=== PATIENT | male | born 1975 | race Caucasian/White ===

== ENCOUNTER 2021-05-25 14:51 | Inpatient (IN) | payer BC ==
[2021-05-25] MEDS ORDERED: MORPHINE SULFATE 4 MG/ML SYRINGE IVP STA ×2 (15:23→19:01)
[2021-05-25 15:37] LABS: Basophils # (A) 0.1 k/uL (0-0.2); Basophils % (A) 1 %; Eosinophils # (A) 0.2 k/uL (0-0.7); Eosinophils % (A) 3 %; HCT 45.6 % (39.0-53.0); HGB 15.7 gm/dL (13.0-17.5); Lymphocytes # (A) 2.1 k/uL (1.0-4.8); Lymphocytes % (A) 25 %; MCH 30.6 pg (25.0-35.0); MCHC 34.5 g/dL (31.0-37.0); MCV 88.6 fL (80.0-100.0); Monocytes # (A) 0.5 k/uL (0-1.0); Monocytes % (A) 6 %; Neutrophils # (A) 5.3 k/uL (1.3-7.7); Neutrophils % (A) 64 %; Platelet Count 195 k/uL (150-450); RBC 5.15 m/uL (4.30-5.90); RDW 12.3 % (11.5-15.5); WBC 8.3 k/uL (3.8-10.6)
[2021-05-25] MEDS ORDERED: KETOROLAC 30 MG/ML 1 ML VIAL IVP STA (15:41)
[2021-05-25 15:49] LABS: ALT 14 U/L (4-49); AST 33 U/L (17-59); African American GFR (CKD) >90 (>60 ml/min/1.73 sqM); Albumin 4.1 g/dL (3.5-5.0); Alkaline Phosphatase 90 U/L (38-126); Anion Gap 8 mmol/L; Blood Urea Nitrogen 8 mg/dL (9-20); Carbon Dioxide 24 mmol/L (22-30); Chloride 101 mmol/L (98-107); Glucose 106 mg/dL (74-99); Lipase 71 U/L (23-300); Magnesium 2.1 mg/dL (1.6-2.3); Non-African American GFR(CKD) >90 (>60 ml/min/1.73 sqM); Sodium 133 mmol/L (137-145); Total Bilirubin 0.9 mg/dL (0.2-1.3)
[2021-05-25 15:55] LABS: Potassium 5.1 mmol/L (3.5-5.1)
--- NOTE | 2021-05-25 15:57 | ED ---
General Adult HPI - General Chief complaint: Chest Pain Stated complaint: chest pain Time Seen by Provider: 05/25/21 15:17 Source: patient, EMS, RN notes reviewed, old records reviewed Mode of arrival: EMS Limitations: no limitations - History of Present Illness Initial comments: 45-year-old male presenting with left-sided chest pain. Patient's pain began shortly prior to arrival. He was in his vehicle smoking a cigarette. He does have history of tobacco use. He developed pain that was in his left chest. No extremity pain. No vomiting. No diaphoresis. No previous history of CAD. No history of DVT or PE. No significant cough or fever. - Related Data Home Medications Medication Instructions Recorded Confirmed No Known Home Medications 05/25/21 05/25/21 Allergies Allergy/AdvReac Type Severity Reaction Status Date / Time No Known Allergies Allergy Verified 05/25/21 17:26 Review of Systems ROS Statement: Those systems with pertinent positive or pertinent negative responses have been documented in the HPI. ROS Other: All systems not noted in ROS Statement are negative. Past Medical History Past Medical History: No Reported History History of Any Multi-Drug Resistant Organisms: None Reported Past Surgical History: Back Surgery Past Psychological History: No Psychological Hx Reported Smoking Status: Current every day smoker Past Alcohol Use History: None Reported Past Drug Use History: None Reported General Exam Limitations: no limitations General appearance: alert, in no apparent distress Head exam: Present: atraumatic, normocephalic Eye exam: Present: normal appearance, PERRL ENT exam: Present: normal exam Neck exam: Present: normal inspection. Absent: tenderness, meningismus Respiratory exam: Present: normal lung sounds bilaterally. Absent: respiratory distress, wheezes, rales, rhonchi Cardiovascular Exam: Present: regular rate, normal rhythm GI/Abdominal exam: Present: soft. Absent: distended, tenderness, guarding, rebound Extremities exam: Present: normal inspection, normal capillary refill Back exam: Present: normal inspection, full ROM Neurological exam: Present: alert Psychiatric exam: Present: normal affect, normal mood Skin exam: Present: warm, dry, intact. Absent: cyanosis, diaphoretic Course Vital Signs 05/25/21 05/25/21 05/25/21 14:57 17:27 18:07 Temperature 98.8 F Pulse Rate 78 64 67 Respiratory 16 18 20 Rate Blood Pressure 143/92 133/95 120/79 O2 Sat by Pulse 98 100 99 Oximetry 05/25/21 19:17 Temperature Pulse Rate 95 Respiratory 20 Rate Blood Pressure 158/108 O2 Sat by Pulse 100 Oximetry - Reevaluation(s) Reevaluation #1: 05/25/211914 Recent symptoms did improve all emergency department. My plan was initially to admit however the patient preferred discharge. He agreed to a second troponin. The second troponin was significantly elevated in the patient agreed to admission at this time. EKG Findings - EKG Comments: EKG Findings:: EKG: Normal sinus rhythm, rate of 87, MN interval 154, QRS duration 96, QTC 442, no ST segment elevation. EKG repeated at 1625, normal sinus, no ST segment elevation, rate is 74, MN interval 176, QRS duration 94, QTC 439 Medical Decision Making - Medical Decision Making 45 yo male with left-sided chest pain. Pain began abruptly. Patient did have his booster shot for coronavirus 3 days ago. His pain is left-sided nonradiating. No associated diaphoresis. His EKG twice in the emergency d epartment while he was having active pain was normal sinus rhythm without ST segment elevation. Chest x-ray is clear. He has a normal CBC, normal CMP, negative d-dimer, negative initial troponin. He did agree to second troponin while in the emergency department which was positive at 0.6. At this time the the case was discussed with cardiology, Dr. Maddox as well as the admitting team, Neelam kay for [facility] Patient was given aspirin, nitroglycerin, heparin infusion in the emergency department. He was started on a beta maegan. Echo was ordered. Serial cardiac enzymes are ordered. - Lab Data Result diagrams: 05/25/21 15:20 05/25/21 15:20 Lab Results 05/25/21 05/25/21 05/25/21 Range/Units 15:20 15:20 15:20 WBC 8.3 (3.8-10.6) k/uL RBC 5.15 (4.30-5.90) m/uL Hgb 15.7 (13.0-17.5) gm/dL Hct 45.6 (39.0-53.0) % MCV 88.6 (80.0-100.0) fL MCH 30.6 (25.0-35.0) pg MCHC 34.5 (31.0-37.0) g/dL RDW 12.3 (11.5-15.5) % Plt Count 195 (150-450) k/uL MPV 8.0 Neutrophils % 64 % Lymphocytes % 25 % Monocytes % 6 % Eosinophils % 3 % Basophils % 1 % Neutrophils # 5.3 (1.3-7.7) k/uL Lymphocytes # 2.1 (1.0-4.8) k/uL Monocytes # 0.5 (0-1.0) k/uL Eosinophils # 0.2 (0-0.7) k/uL Basophils # 0.1 (0-0.2) k/uL PT 9.8 (9.0-12.0) sec INR 0.9 (<1.2) APTT 24.4 (22.0-30.0) sec D-Dimer 0.52 (<0.60) mg/L FEU Sodium 133 L (137-145) mmol/L Potassium 5.1 (3.5-5.1) mmol/L Chloride 101 (98-107) mmol/L Carbon Dioxide 24 (22-30) mmol/L Anion Gap 8 mmol/L BUN 8 L (9-20) mg/dL Creatinine 0.80 (0.66-1.25) mg/dL Est GFR (CKD-EPI)AfAm >90 (>60 ml/min/1.73 sqM) Est GFR (CKD-EPI)NonAf >90 (>60 ml/min/1.73 sqM) Glucose 106 H (74-99) mg/dL Calcium 9.0 (8.4-10.2) mg/dL Magnesium 2.1 (1.6-2.3) mg/dL Total Bilirubin 0.9 (0.2-1.3) mg/dL AST 33 (17-59) U/L ALT 14 (4-49) U/L Alkaline Phosphatase 90 (38-126) U/L Troponin I (0.000-0.034) ng/mL Total Protein 7.0 (6.3-8.2) g/dL Albumin 4.1 (3.5-5.0) g/dL Lipase 71 (23-300) U/L 05/25/21 05/25/21 Range/Units 15:20 18:08 WBC (3.8-10.6) k/uL RBC (4.30-5.90) m/uL Hgb (13.0-17.5) gm/dL Hct (39.0-53.0) % MCV (80.0-100.0) fL MCH (25.0-35.0) pg MCHC (31.0-37.0) g/dL RDW (11.5-15.5) % Plt Count (150-450) k/uL MPV Neutrophils % % Lymphocytes % % Monocytes % % Eosinophils % % Basophils % % Neutrophils # (1.3-7.7) k/uL Lymphocytes # (1.0-4.8) k/uL Monocytes # (0-1.0) k/uL Eosinophils # (0-0.7) k/uL Basophils # (0-0.2) k/uL PT (9.0-12.0) sec INR (<1.2) APTT (22.0-30.0) sec D-Dimer (<0.60) mg/L FEU Sodium (137-145) mmol/L Potassium (3.5-5.1) mmol/L Chloride (98-107) mmol/L Carbon Dioxide (22-30) mmol/L Anion Gap mmol/L BUN (9-20) mg/dL Creatinine (0.66-1.25) mg/dL Est GFR (CKD-EPI)AfAm (>60 ml/min/1.73 sqM) Est GFR (CKD-EPI)NonAf (>60 ml/min/1.73 sqM) Glucose (74-99) mg/dL Calcium (8.4-10.2) mg/dL Magnesium (1.6-2.3) mg/dL Total Bilirubin (0.2-1.3) mg/dL AST (17-59) U/L ALT (4-49) U/L Alkaline Phosphatase (38-126) U/L Troponin I 0.016 0.671 H* (0.000-0.034) ng/mL Total Protein (6.3-8.2) g/dL Albumin (3.5-5.0) g/dL Lipase (23-300) U/L Critical Care Time Critical Care Time: Yes Total Critical Care Time: 35 Disposition Clinical Impression: Acute non-ST elevation myocardial infarction (NSTEMI) Disposition: ADMITTED IP TO THIS HOSP Condition: Stable Is patient prescribed a controlled substance at d/c from ED?: No Referrals: Christian Vidales MD [Primary Care Provider] - 1-2 days Decision to Admit Reason: Admit from EC Decision Date: 05/25/21 Decision Time: 19:30
[2021-05-25 16:11] LABS: INR 0.9 (<1.2); Partial Thromboplastin Time 24.4 sec (22.0-30.0); Prothrombin Time 9.8 sec (9.0-12.0)
[2021-05-25] MEDS ORDERED: ASPIRIN 325 MG TAB PO STA (16:15)
--- NOTE | 2021-05-25 16:29 | XR ---
INDICATION: Patient age:Male; 45 years old; Reason for study: Chest Pain; PHH. COMPARISON: None. TECHNIQUE: Frontal and lateral views of the chest. FINDINGS: Lungs/Pleura: There is no evidence of pleural effusion, focal consolidation, or pneumothorax. Pulmonary vascularity: Unremarkable. Heart/mediastinum: Cardiomediastinal silhouette is unremarkable. Musculoskeletal: No acute osseous pathology. IMPRESSION: No acute cardiopulmonary disease/process.
[2021-05-25] MEDS ORDERED: HEPARIN SODIUM 1,000 UN/ML (10ML VL) IV ONE (19:12)
[2021-05-25] MEDS ORDERED: HEPARIN SODIUM 1,000 UN/ML (10ML VL) IV PRN (19:12)
[2021-05-25] MEDS ORDERED: HEPARIN SOD,PORK IN 0.45% NACL 25,000 UNIT in 0.45% NACL 1 250ML.BAG IV SCH (19:15)
[2021-05-25] MEDS: METOPROLOL TARTRATE 25 MG TAB PO SCH (19:53)
[2021-05-25] MEDS: NITROGLYCERIN OINT 1 INCH/GM PACKET TOPICAL SCH (19:54)
[2021-05-25 20:16] LABS: Appearance,Urine Clear (Clear); Bilirubin,Urine Negative (Negative); Blood,Urine Negative (Negative); Color,Urine Yellow; Glucose,Urine (UA) Negative (Negative); Ketones,Urine Negative (Negative); Leukocyte Esterase,Urine Negative (Negative); Nitrite,Urine Negative (Negative); Protein,Urine Negative (Negative); Specific Gravity,Urine 1.007 (1.001-1.035); Urobilinogen,Urine <2.0 mg/dL (<2.0)
[2021-05-25 20:39] LABS: Amphetamine Screen,Urine Not Detected (NotDetected); Barbiturate Screen,Urine Not Detected (NotDetected); Benzodiazepines Screen,Urine Not Detected (NotDetected); Cocaine Screen,Urine Not Detected (NotDetected); Methadone Screen, Urine Not Detected (NotDetected); Opiate Screen,Urine Detected (NotDetected); Oxycodone Screen, Urine Not Detected (NotDetected); Phencyclidine Screen,Urine Not Detected (NotDetected); Tricyclic Antidepressant,Urine Not Detected (NotDetected); Urn Cannabinoid Scrn Not Detected (NotDetected)
[2021-05-25] MEDS ORDERED: ATORVASTATIN 80 MG TAB PO SCH (21:00)
[2021-05-25] MEDS ORDERED: LORazepam 2 MG/ML INJ IV STA (22:35)
[2021-05-25] MEDS ORDERED: HYDROmorphone 1 MG/ML 1 ML SYRINGE IVP STA (22:35)
[2021-05-25] MEDS: MORPHINE SULFATE 4 MG/ML SYRINGE IV PRN (23:16)
[2021-05-26 02:35] LABS: Basophils # (A) 0.1 k/uL (0-0.2); Basophils % (A) 1 %; Eosinophils # (A) 0.3 k/uL (0-0.7); Eosinophils % (A) 4 %; HCT 39.1 % (39.0-53.0); HGB 13.4 gm/dL (13.0-17.5); Lymphocytes # (A) 3.5 k/uL (1.0-4.8); Lymphocytes % (A) 45 %; MCH 30.5 pg (25.0-35.0); MCHC 34.4 g/dL (31.0-37.0); MCV 88.6 fL (80.0-100.0); Mean Platelet Volume 8.3; Monocytes # (A) 0.5 k/uL (0-1.0); Monocytes % (A) 6 %; Neutrophils # (A) 3.4 k/uL (1.3-7.7); Neutrophils % (A) 43 %; Platelet Count 179 k/uL (150-450); RBC 4.41 m/uL (4.30-5.90); RDW 12.1 % (11.5-15.5); WBC 7.9 k/uL (3.8-10.6)
[2021-05-26 02:56] LABS: INR 0.9 (<1.2); Prothrombin Time 10.1 sec (9.0-12.0)
[2021-05-26] MEDS: MORPHINE SULFATE 4 MG/ML SYRINGE IV PRN ×3 (05:01→10:09)
[2021-05-26] MEDS: NITROGLYCERIN OINT 1 INCH/GM PACKET TOPICAL SCH ×2 (05:59→17:24)
[2021-05-26] MEDS: METOPROLOL TARTRATE 25 MG TAB PO SCH (08:31)
[2021-05-26] MEDS ORDERED: ASPIRIN 325 MG TAB PO SCH (09:00)
[2021-05-26] MEDS ORDERED: ALPRAZolam 0.25 MG TAB PO PRN (09:43)
[2021-05-26] MEDS ORDERED: ATORVASTATIN 80 MG TAB PO STA (09:43)
[2021-05-26] MEDS ORDERED: ALPRAZolam 0.5 MG TAB PO PRN (09:43)
[2021-05-26] MEDS ORDERED: NITROGLYCERIN SL TABS 0.4 MG TAB SUBLINGUAL PRN (09:43)
[2021-05-26] MEDS ORDERED: ASPIRIN 325 MG TAB PO STA (09:43)
[2021-05-26] MEDS ORDERED: SODIUM CHLORIDE 0.9% 1,000 ML in EMPTY BAG 1 BAG IV SCH (09:45)
[2021-05-26] MEDS ORDERED: LIDOCAINE 1% INJ 10MG/ML (20 ML MDV) SQ ONE ×2 (11:08→12:08)
[2021-05-26] MEDS ORDERED: LIDOCAINE 1% INJ 10MG/ML (20 ML MDV) ONE (12:00)
[2021-05-26] MEDS ORDERED: VERAPAMIL 2.5 MG/ML 2 ML AMP ONE (12:01)
[2021-05-26] MEDS ORDERED: .fentaNYL (PF) 50 MCG/ML 2 ML AMP IV ONE (12:08)
[2021-05-26] MEDS ORDERED: VERAPAMIL SYRINGE (5 MG/10 ML) INTRAARTER ONE (12:11)
[2021-05-26] MEDS ORDERED: MIDAZOLAM 2 MG/2 ML VIAL IV ONE (12:11)
[2021-05-26] MEDS ORDERED: HEPARIN SODIUM 1,000 UN/ML (10ML VL) ONE (12:12)
[2021-05-26] MEDS ORDERED: HEPARIN SODIUM 1,000 UN/ML (10ML VL) IV ONE (12:13)
[2021-05-26] MEDS ORDERED: IV FLUID CONTINUATION 1,000 ML IV ONE (12:13)
[2021-05-26 13:13] LABS: Chol/HDL Ratio 5.74 Ratio; LDL Cholesterol,Calculated 92.8 mg/dL (0.0-131.0)
[2021-05-26] MEDS ORDERED: HYDROcodone/APAP 7.5-325MG 1 EACH TAB PO PRN (13:23)
--- NOTE | 2021-05-26 13:23 | CONS ---
CONSULTATION HISTORY OF PRESENT ILLNESS: Ike is a 45-year-old gentleman with no significant past medical history who presented to [facility] having had an episode of chest pain. It was sudden onset precordial chest pressure, mild to moderate intensity 5 to 8/10 in intensity that radiated to his back. The patient had a recent Covid booster and developed lymphadenopathy in the right axilla. His EKG on his initial presentation to the emergency room showed normal sinus rhythm and was within normal limits. He has had troponins and the first troponin was normal at 0.016 but subsequent who came back elevated at 0.6 and 1.1 necessitating his admission to hospital. His urine drug screen was positive for opiates. Coronavirus test was negative. At the time of my evaluation this morning, he still complains of chest pressure. Given his chest pain and the non ST-segment elevation [place], I advised him to undergo cardiac catheterization. He understands risks, benefits and alternatives. PAST MEDICAL HISTORY: Negative for hypertension, diabetes or dyslipidemia. MEDICATIONS: None. ALLERGIES: None. FAMILY HISTORY: Significant for coronary artery disease in his father and also recurrent strokes. SOCIAL HISTORY: Negative for smoking. There is no history of EtOH abuse or drug abuse. REVIEW OF SYSTEMS: HEENT is unremarkable. CARDIAC as described above. RESPIRATORY as described above. GI negative. GENITOURINARY: Negative. ALLERGY none. SKIN negative. MUSCULOSKELETAL negative. DERM: Negative. CONSTITUTIONAL negative. ONCOLOGICAL negative. EGG TRAYER negative. Rest of the system review is not relevant, PHYSICAL EXAMINATION: O2 saturation is 98% on room air. VITAL SIGNS: Stable. NECK: There is no jugular venous distention. Carotid upstroke is normal. There is no bruit. CHEST exam reveals good air entry bilaterally. HEART exam reveals first and second heart sounds. No gallop. No murmur. No rub. ABDOMEN is soft, nontender. Examination of EXTREMITIES did not reveal any edema. Peripheral pulses are felt. LABS: Labs show that the hemoglobin is 13.4, platelet count is 179, potassium is 5.1, creatinine 0.8. Troponins are elevated. ASSESSMENT: Acute fcu-PS-ebnlmzj-elevation myocardial infarction. PLAN: Patient will undergo cardiac catheterization today. He is currently on aspirin, Lipitor, and Lopressor along with nitro paste. MMODL / IJN: [id number] /
--- NOTE | 2021-05-26 13:32 | CC ---
CARDIAC CATHETERIZATION REPORT INDICATION: Non ST-segment elevation [place]. PROCEDURE NOTE: After obtaining informed consent, left heart catheterization and coronary angiogram were performed via the right radial artery using standard Matilda catheters. Patient tolerated the procedure well without any obvious immediate complications. A size 4 Matilda catheters were used to engage the right and the left coronary artery. The patient received moderate conscious sedation. Total sedation time was 15 minutes. Right radial artery access was obtained using modified Seldinger technique and under fluoroscopic guidance, wires and catheters were floated into the ascending aorta and the cardiac catheterization was completed uneventfully. 5 mg of verapamil was used to prevent vasospasm and patient also received intravenous heparin. A TR band was placed for hemostasis and pulse ox of 99 percent was obtained. FINDINGS: HEMODYNAMICS: Left ventricular end-diastolic pressure 10-14 mm. There is no significant gradient across the aortic valve. LEFT VENTRICULOGRAM: Not performed. ANGIOGRAPHIC DATA: LEFT MAIN CORONARY ARTERY: Left main coronary artery is a normal-sized vessel and is free of stenosis. Divides into left anterior descending coronary artery and circumflex coronary artery. LEFT ANTERIOR DESCENDING CORONARY ARTERY: LAD and its branches, circumflex coronary artery and its branches are free of significant stenosis RIGHT CORONARY ARTERY: Right coronary artery is a large dominant vessel and is free of significant disease. CONCLUSION: 1. Normal coronary arteries. 2. Normal left ventricular end-diastolic pressure. PLAN: Patient's elevated troponin may be related to myocarditis from the recent Covid booster shot. I will obtain a 2D echo to document the LV function hopefully home in the morning. MMBILL / PATTIN: [id number] /
[2021-05-26 13:43] VITALS: RESP 16
--- NOTE | 2021-05-26 13:46 | P.DS ---
Providers Date of admission: 05/25/21 19:12 Attending physician: Eran Chou Consults: 05/25/21 19:12 Consult Physician Urgent Consulting Provider: Eladio Maddox Consult Reason/Comments: NSTEMI Do you want consulting provider notified?: Already Contacted Primary care physician: Christian Vidales [facility] Course: Please refer to my history of present illness for further details Patient Condition at Discharge: Stable Plan - Discharge Summary Discharge Rx Participant: Yes New Discharge Prescriptions: No Action No Known Home Medications Discharge Medication List No Known Home Medications 05/25/21 [History] Follow up Appointment(s)/Referral(s): Christian Vidales MD [Primary Care Provider] - 3 Days Discharge Disposition: HOME SELF-CARE
--- NOTE | 2021-05-26 13:46 | ECHOF ---
Referral Reason:NSTEMI MEASUREMENTS -------- HEIGHT: 177.8 cm WEIGHT: 80.7 kg BP: RVIDd: 2.4 cm (< 3.3) IVSd: 1.1 cm (0.6 - 1.1) LVIDd: 4.6 cm (3.9 - 5.3) LVPWd: 1.1 cm (0.6 - 1.1) IVSs: 1.3 cm LVIDs: 3.3 cm LVPWs: 1.5 cm LAESV Index (A-L): 26.60 ml/m Ao Diam: 3.2 cm (2.0 - 3.7) AV Cusp: 2.3 cm (1.5 - 2.6) LA Diam: 3.5 cm (2.7 - 3.8) MV EXCURSION: 22.721 mm (> 18.000) MV EF SLOPE: 90 mm/s (70 - 150) EPSS: 0.8 cm MV E Garret: 0.82 m/s MV DecT: 236 ms MV A Garret: 0.69 m/s MV E/A Ratio: 1.20 RAP: 5.00 mmHg RVSP: 13.74 mmHg FINDINGS -------- Sinus rhythm. This was a technically adequate study. The left ventricular size is normal. Left ventricular wall thickness is normal. Overall left vent ricular systolic function is normal with, an EF between 55 - 60 %. The right ventricle is normal in size. Normal LA size by volume 22+/-6 ml/m2. The right atrial size is normal. Interatrial and interventricular septum intact. The aortic valve is trileaflet and appears structurally normal. There is no evidence of aortic regu rgitation. There is no evidence of aortic stenosis. No mitral regurgitation. Mild tricuspid regurgitation present. There is no evidence of pulmonary hypertension. The right v entricular systolic pressure, as measured by Doppler, is 13.74mmHg. There is no pulmonic regurgitation present. The aortic root size is normal. Normal inferior vena cava with normal inspiratory collapse consistent with estimated right atrial pre ssure of 5 mmHg. There is no pericardial effusion. CONCLUSIONS -------- 1. The left ventricular size is normal. 2. Left ventricular wall thickness is normal. 3. Overall left ventricular systolic function is normal with, an EF between 55 - 60 %. 4. Mild tricuspid regurgitation present. CLINICAL LABORATORY MANAGER: Cammy Mcqueen RDCS
--- NOTE | 2021-05-26 13:46 | P.HPIM ---
History of Present Illness Patient is a 45-year-old the male came in with the complaints of chest pain which started yesterday 01/29 in severity sharp in nature radiating to the back. Patient had a recent Covid 19 posterior EKG showed normal sinus rhythm without any acute abnormality although troponin progressively went up from 0.016-1.1 because of which patient was advised to undergo cardiac catheterization patient underwent cardiac catheterization although I do not have any official report it appears patient had normal coronaries. REVIEW OF SYSTEMS: CONSTITUTIONAL: No fever, no malaise, no fatigue. HEENT: No recent visual problems or hearing problems. Denied any sore throat. CARDIOVASCULAR: No orthopnea, PND, no palpitations, no syncope. PULMONARY: No shortness of breath, no cough, no hemoptysis. GASTROINTESTINAL: No diarrhea, no nausea, no vomiting, no abdominal pain. NEUROLOGICAL: No headaches, no weakness, no numbness. HEMATOLOGICAL: Denies any bleeding or petechiae. GENITOURINARY: Denies any burning micturition, frequency, or urgency. MUSCULOSKELETAL/RHEUMATOLOGICAL: Denies any joint pain, swelling, or any muscle pain. ENDOCRINE: Denies any polyuria or polydipsia. The rest of the 14-point review of systems is negative. PHYSICAL EXAMINATION: GENERAL: The patient is alert and oriented x3, not in any acute distress. Well developed, well nourished. HEENT: Pupils are round and equally reacting to light. EOMI. No scleral icterus. No conjunctival pallor. Normocephalic, atraumatic. No pharyngeal erythema. No thyromegaly. CARDIOVASCULAR: S1 and S2 present. No murmurs, rubs, or gallops. PULMONARY: Chest is clear to auscultation, no wheezing or crackles. ABDOMEN: Soft, nontender, nondistended, normoactive bowel sounds. No palpable organomegaly. MUSCULOSKELETAL: No joint swelling or deformity. EXTREMITIES: No cyanosis, clubbing, or pedal edema. NEUROLOGICAL: Gross neurological examination did not reveal any focal deficits. SKIN: No rashes. Assessment and plan -Chest pain with elevated troponins: Patient doesn't have any significant coronary atherosclerotic occlusive disease patient probably has viral myocarditis or myocardial inflammation post Covid 19 vaccine -Chronic lower back pain -Nicotine use history Wii be discharged if cleared by cardiology. Past Medical History Past Medical History: No Reported History History of Any Multi-Drug Resistant Organisms: None Reported Past Surgical History: Back Surgery Past Psychological History: No Psychological Hx Reported Smoking Status: Current every day smoker Past Alcohol Use History: None Reported Past Drug Use History: None Reported Medications and Allergies Home Medications Medication Instructions Recorded Confirmed Type No Known Home Medications 05/25/21 05/25/21 History Allergies Allergy/AdvReac Type Severity Reaction Status Date / Time No Known Allergies Allergy Verified 05/25/21 17:26 Physical Exam Vitals: Vital Signs Temp Pulse Pulse Resp BP BP Pulse Ox 05/26/21 12:40 16 101/55 97 05/26/21 10:00 72 17 116/76 98 05/26/21 08:00 98.4 F 72 17 97/67 100 05/26/21 04:00 79 16 95/54 95 05/26/21 00:00 97.8 F 71 18 117/71 99 05/25/21 20:17 99 05/25/21 20:00 85 19 160/111 99 05/25/21 19:17 95 20 158/108 100 05/25/21 18:07 67 20 120/79 99 05/25/21 17:27 64 18 133/95 100 05/25/21 14:57 98.8 F 78 16 143/92 98 Intake and Output 05/25/21 05/26/21 05/26/21 22:59 06:59 14:59 Intake Total 485 580.885 280 Balance 485 580.885 280 Intake: IV 100 Intake, IV Titration 95.885 Amount Heparin Sod,Pork in 0.45% 95.885 NaCl 25,000 unit In 0.45 % NaCl 1 250ml.bag @ 12 UNITS/KG/HR 9.525 mls/hr IV .Q24H [facility] Rx#: [id number] Oral 485 485 180 Other: # Voids 1 Weight 96 kg Results CBC & Chem 7: 05/26/21 02:13 05/25/21 15:20 Labs: Abnormal Lab Results - Last 24 Hours (Table) 05/25/21 05/25/21 05/25/21 Range/Units 15:20 18:08 19:19 APTT (22.0-30.0) sec Sodium 133 L (137-145) mmol/L BUN 8 L (9-20) mg/dL Glucose 106 H (74-99) mg/dL Troponin I 0.671 H* (0.000-0.034) ng/mL Triglycerides (0.00-149.00) mg/dL HDL Cholesterol (40.00-60.00) mg/dL Urine Opiates Screen Detected H (NotDetected) 05/25/21 05/26/21 05/26/21 Range/Units 21:58 02:13 13:05 APTT 42.3 H (22.0-30.0) sec Sodium (137-145) mmol/L BUN (9-20) mg/dL Glucose (74-99) mg/dL Troponin I 1.170 H* (0.000-0.034) ng/mL Triglycerides 180.00 H (0.00-149.00) mg/dL HDL Cholesterol 27.20 L (40.00-60.00) mg/dL Urine Opiates Screen (NotDetected)
[2021-05-26 16:39] VITALS: BP 126/80; PULSE 84; TEMP 98.5
== END 2021-05-26 17:46 | disposition home or self-care (01) | DRG 287 ==
LOC: EC 14:51 → 3SCARD 19:12
PROVIDERS: ADMIT Internal Medicine; ATTEND Internal Medicine
PROC: 4A023N7 Measurement of Cardiac Sampling and Pressure, Left Heart, Percutaneous Approach (ICD-10-PCS; principal; 2021-05-26 12:00)
PROC: B2111ZZ Fluoroscopy of Multiple Coronary Arteries using Low Osmolar Contrast (ICD-10-PCS; principal; 2021-05-26 12:00)
DX: I40.0 Infective myocarditis (principal); F17.210 Nicotine dependence, cigarettes, uncomplicated; Z20.822 Contact with and (suspected) exposure to COVID-19; M54.50 Low back pain, unspecified; G89.29 Other chronic pain; Z71.6 Tobacco abuse counseling; Z82.49 Family history of ischemic heart disease and other diseases of the circulatory system
CPT/HCPCS: 36415; 71046; 80053; 80061; 80306; 81003; 83690; 83735; 84484; 85025; 85379; 85610; 85730; 87635; 93005; 93306; 93458; 94760; 96374; 96375; 96376; 99285